=== PATIENT | male | born 1970 | race Caucasian/White ===

== ENCOUNTER → 2016-06-19 | Outpatient (CLI) | payer OTHER ==
--- NOTE | 2016-06-19 11:49 | KCIC ---
PROCEDURE MR of the left knee HISTORY Left knee pain. Pain generalized for several months. COMPARISON None TECHNIQUE Standard multiplanar sequences are obtained. FINDINGS Mild blunting of the free margin of the medial meniscus, best seen on 2 contiguous coronal slices. Unless patient has had prior meniscectomy this is compatible with a small degenerative tear. No evidence of a lateral meniscal tear. The anterior cruciate ligament is intact. Posterior cruciate ligament is intact. Medial collateral ligament is intact. Iliotibial band unremarkable. Fibular collateral ligament, biceps femoris tendon and popliteus tendon are intact. Extensor mechanism is intact. Small joint effusion. No evidence of osteochondral loose body. Mild chondromalacia of the patellofemoral joint. Mild chondromalacia at the posterior lateral tibial plateau. There is a geographic bone lesion within the distal femur, centered at the meta diaphyseal junction. This is only partially included on the T1 weighted axial sequence but is completely seen on the long-axis T2 and proton density weighted images. Measures 2.7 centimeters diameter. This is eccentrically located at the medial cortex. Margins well-defined. No cortical destruction or adjacent bone marrow edema. No acute fracture. No significant acute soft tissue abnormality. IMPRESSION 1. Small degenerative tear of the medial meniscus, unless patient has had a prior meniscectomy. 2. Geographic bone lesion within the distal femur, does not demonstrate aggressive features, and may represent an enchondroma. Radiographs could be of benefit to see if this is detectable and therefore could be further characterized. If the patient's pain could be attributable to this lesion, further workup, particularly with a bone scan, could be of benefit. Electronically signed by: Nilson Vaughn MD (Jun 19, 2016 11:48:24)
== END | disposition home or self-care (01) ==
LOC: KCIC MRI 09:34
PROVIDERS: ATTEND Internal Medicine
DX: S83.242A Other tear of medial meniscus, current injury, left knee, initial encounter (principal); M25.462 Effusion, left knee; M22.42 Chondromalacia patellae, left knee; X58.XXXA Exposure to other specified factors, initial encounter; Y93.89 Activity, other specified; Y92.89 Other specified places as the place of occurrence of the external cause; Y99.8 Other external cause status
CPT/HCPCS: 73721